=== PATIENT | male | born 1980 | race Caucasian/White ===

== ENCOUNTER → 2018-09-23 13:42 | Outpatient (CLI) | payer SELFPAY ==
[2018-09-23 16:34] LABS: Liquefaction Semen YES (YES); Volume Semen 4 (1.0-5.0)
[2018-09-23 16:35] LABS: PH Semen 8 (7-8); Sperm Count 250 x10^6/mL (20-150); Sperm Motility 80% % Motile
[2018-09-23 16:36] LABS: Sperm Morphology 25 %ABNORM (0-30)
== END ==
PROVIDERS: Visit Provider Obstetrics & Gynecology
DX: Z31.9 Encounter for procreative management, unspecified (principal)
CPT/HCPCS: 89320